=== PATIENT | female | born 1945 | race Caucasian/White ===

== ENCOUNTER 2022-01-14 17:08 | Emergency (ER) | payer MEDICARE, OTHER ==
[~2022-01-14] VITALS: Ht 162.6 cm; Wt 68.0 kg
[2022-01-14 18:04] LABS: HEMOGLOBIN 7.6 gm/dl (12.3-15.3); RED BLOOD COUNT 3.45 M/UL (4.00-5.10); WHITE BLOOD COUNT 8.3 K/UL (4.5-11.0)
[2022-01-14 19:09] LABS: BUN/CREATININE RATIO 14 (0-10)
== END 2022-01-14 23:20 | disposition short-term general hospital (02) ==
LOC: ER1 17:08
PROVIDERS: Emergency Medicine
DX: I48.91 Unspecified atrial fibrillation (principal); I44.2 Atrioventricular block, complete; D64.9 Anemia, unspecified; I95.9 Hypotension, unspecified; N19 Unspecified kidney failure; Z79.01 Long term (current) use of anticoagulants; Z79.899 Other long term (current) drug therapy; Z20.822 Contact with and (suspected) exposure to COVID-19
CPT/HCPCS: 71045; 80053; 81001; 82272; 82550; 82553; 83735; 83880; 84439; 84443; 84484; 85025; 85610; 85730; 93005; 96374; 96376; 99285; C9113; J2250; J2405; J3010; U0002

== ENCOUNTER 2022-02-01 08:07 | Observation (INO) | payer MEDICARE, OTHER ==
[~2022-02-01] VITALS: Ht 162.6 cm; Wt 69.6 kg
[2022-02-01 08:52] LABS: HEMOGLOBIN 12.1 gm/dl (12.3-15.3); RED BLOOD COUNT 4.67 M/UL (4.00-5.10); WHITE BLOOD COUNT 5.8 K/UL (4.5-11.0)
[2022-02-01 09:21] LABS: BUN/CREATININE RATIO 17 (0-10)
[2022-02-01] MEDS ORDERED: CHLORDIAZEPOXIDE5 MG PO (12:04)
[2022-02-01] MEDS ORDERED: ESOMEPRAZOLE MA40 MG PO (12:04)
[2022-02-01] MEDS ORDERED: METOPROLOL TART25 MG PO (12:05)
[2022-02-01] MEDS ORDERED: FEROSUL325 MG PO (12:05)
[2022-02-01] MEDS ORDERED: ELIQUIS5 MG PO (12:06)
[2022-02-01] MEDS ORDERED: VALSARTAN40 MG PO (12:09)
[2022-02-01] MEDS ORDERED: ATORVASTATIN CA10 MG PO (12:11)
[2022-02-01] MEDS ORDERED: ASPIRIN EC81 MG PO (12:11)
[2022-02-01] MEDS ORDERED: CALCIUM 600 +1 EAC4 PO (12:11)
[2022-02-02 03:42] LABS: HEMOGLOBIN 11.1 gm/dl (12.3-15.3); RED BLOOD COUNT 4.35 M/UL (4.00-5.10)
[2022-02-02] MEDS ORDERED: LOPRESSOR 50 MG50 MG PO (11:53)
== END 2022-02-02 13:15 | disposition home or self-care (01) ==
LOC: ER1 08:07 → CDU 10:09 → MED SURG 4 12:27
PROVIDERS: Emergency Medicine; Physician Assistant; ADMIT Internal Medicine
DX: R07.89 Other chest pain (principal)
CPT/HCPCS: 36415; 70450; 71045; 80048; 80053; 82550; 82553; 84484; 85025; 93005; 99285; G0378